=== PATIENT | male | born 1990 | race Caucasian/White ===

== ENCOUNTER 2017-01-24 04:32 | Emergency (ER) | payer SELFPAY ==
[~2017-01-24] VITALS: Ht 180.3 cm; Wt 95.0 kg
[2017-01-24 04:38] VITALS: BP 137/86; PULSE 64; RESP 16; TEMP 97.7; O2SAT 98
[2017-01-24] MEDS ORDERED: CORT1SOL RIGHT EAR (04:59)
--- NOTE | 2017-01-24 04:59 | PD ---
HPI Chief Complaint: ENT Complaint Time Seen by Provider: 04:58 Travel History International Travel<30 days: No Contact w/Intl Traveler<30days: No Traveled to known affect area: No History of Present Illness HPI 26-year-old male presents to the emergency department for evaluation right ear pain and muffled hearing. He states he woke up this way. Denies any trauma. Denies any recent illnesses, fever, chills. Denies any drainage. No other symptoms to report. PFSH Past Medical History Medical History: Denies Significant Hx Social History Alcohol Use: No Tobacco Use: No Substance Use: No Allergies-Medications (Allergen,Severity, Reaction): Coded Allergies: Amoxicillin (Verified Allergy, Severe, Anaphylaxis, 01/24/17) Penicillin (Verified Allergy, Severe, Anaphylaxis, 01/24/17) Reported Meds & Prescriptions Reported Meds & Active Scripts Active Cortisporin HC Otic Drops (Doorbgge-Whudojksq-BR Otic Drops) 3.5-10,000-1 Mg- Units-% Soln 4 Drop RIGHT EAR QID Review of Systems Except as stated in HPI: all other systems reviewed are Neg Physical Exam Narrative GENERAL: Well-nourished, well-developed male patient, in no acute distress SKIN: Focused skin assessment warm/dry. HEAD: Normocephalic. Mastoid tenderness EARS: Bilateral pinnae within normal limits. Right Tympanic membrane is obscured due to cerumen impaction. Erythema in the external canal on the right. Bilateral tympanic membranes without erythema, dullness or perforation. EYES: No scleral icterus. No injection or drainage. NECK: Supple, trachea midline. No JVD or lymphadenopathy. CARDIOVASCULAR: Regular rate and rhythm without murmurs, gallops, or rubs. RESPIRATORY: Breath sounds equal bilaterally. No accessory muscle use. MUSCULOSKELETAL: No cyanosis, or edema. BACK: Nontender without obvious deformity. No CVA tenderness. Data Data Last Documented VS Vital Signs Date Time Temp Pulse Resp B/P Pulse Ox O2 Delivery O2 Flow Rate FiO2 01/24/17 04:38 97.7 64 16 137/86 98 MDM Medical Decision Making Medical Screen Exam Complete: Yes Emergency Medical Condition: Yes Medical Record Reviewed: Yes Differential Diagnosis Cerumen impaction versus otitis externa versus otitis media Narrative Course 26-year-old male presents to emergency department for evaluation right ear pain. Patient has significant cerumen impaction. Following irrigation, the canal is erythematous. Patient be discharged on Cortisporin otic drops. He agrees to return immediately with any acute worsening symptoms. Diagnosis Primary Impression: Right ear impacted cerumen Additional Impression: Otitis externa of right ear Qualified Code: H60.311 - Acute diffuse otitis externa of right ear Referrals: Primary Care Physician Patient Instructions: Cerumen Impaction (ED), General Instructions, Otitis Externa (ED) Additional Instructions: Avoid Q-tip use Follow-up with a primary care provider Return immediately with any acute worsening of symptoms Med/Other Pt SpecificInfo: Prescription(s) given Scripts Aktrawae-Qtmkzkgds-TH Otic Drops (Cortisporin HC Otic Drops)3.5-10,000-1 Mg- Units-% Soln4 Drop RIGHT EAR QID #1 BOTTLE Ref 0 Prov:Jasmin Garland 01/24/17 Disposition: 01 DISCHARGE HOME Condition: Stable Jasmin Garland January 24, 2017 04:59
== END 2017-01-24 05:17 | disposition home or self-care (01) ==
LOC: NEPD 04:32
DX: H61.21 Impacted cerumen, right ear (principal); H60.311 Diffuse otitis externa, right ear
CPT/HCPCS: 99282